=== PATIENT | male | born 1975 | race Caucasian/White ===

== ENCOUNTER 2021-05-04 11:37 | Emergency (ER) | payer BC ==
[2021-05-04 12:23] LABS: HEMOGLOBIN 15.2 gm/dl (14.0-17.5); RED BLOOD COUNT 4.9 M/UL (4.20-5.50); WHITE BLOOD COUNT 4.8 K/UL (4.5-11.0)
[2021-05-04 13:10] LABS: BUN/CREATININE RATIO 17 (0-10)
[2021-05-04] MEDS ORDERED: AUGMENTIN 875-1 EACH PO (14:30)
[2021-05-04] MEDS ORDERED: FLAGYL500 MG PO (14:32)
[2021-05-04] MEDS ORDERED: CIPRO500 MG PO (14:32)
== END 2021-05-04 15:10 | disposition home or self-care (01) ==
LOC: ER1 11:37
PROVIDERS: Emergency Medicine
DX: R10.9 Unspecified abdominal pain (principal); R19.7 Diarrhea, unspecified; R11.10 Vomiting, unspecified
CPT/HCPCS: 80053; 81001; 82550; 82553; 83690; 83874; 84484; 85025; 93005; 99284; J7030; Q9967